=== PATIENT | female | born 1960 | race Asian ===

== ENCOUNTER 2021-06-16 09:12 | Inpatient (IN) | payer OTHER ==
[~2021-06-16] VITALS: Ht 167.6 cm; Wt 79.8 kg
[2021-06-16] MEDS ORDERED: LORAZEPAM INJ 2 MG/ML VIAL IVP ONE (09:30)
[2021-06-16] MEDS ORDERED: LORAZEPAM INJ 2 MG/ML VIAL ONE (09:30)
--- NOTE | 2021-06-16 09:30 | NUR ---
TO ER BED 1,MONITORED,DR CAVAZOS AT BEDSIDE
--- NOTE | 2021-06-16 09:41 | NUR ---
SL ESTABLISHED,BLOOD DRAWN BY LAB,MEDICATED ORDERED
[2021-06-16 09:44] LABS: BASOPHILS % (AUTO) 0.4 % (0.0-2.0); EOSINOPHILS % (AUTO) 0.1 % (0.0-6.0); HEMATOCRIT 43 % (33-45); HEMOGLOBIN 14.3 g/dL (11.5-14.8); LYMPHOCYTES # (AUTO) 0.8 K/uL (0.8-4.8); LYMPHOCYTES % (AUTO) 11.8 % (20.0-44.0); MEAN CORPUSCULAR HGB CONC 33 g/dl (31.0-36.0); MEAN CORPUSCULAR VOLUME 97 fL (82-100); MONOCYTES # (AUTO) 0.7 K/uL (0.1-1.30); MONOCYTES % (AUTO) 10.2 % (2.0-12.0); NEUTROPHILS # (AUTO) 5.6 K/uL (1.8-8.9); NEUTROPHILS % (AUTO) 77.5 % (43.0-81.0); PLATELET COUNT (AUTO) 196 K/uL (150-450); RED BLOOD CELL COUNT(AUTO) 4.42 MIL/uL (4.0-5.2); WHITE BLOOD COUNT (AUTO) 7.2 K/uL (4.3-11.0)
[2021-06-16 10:12] LABS: ALANINE AMINOTRANSFERASE 88 U/L (12-78); ALBUMIN 3.6 g/dL (3.4-5.0); ALCOHOL, BLOOD < 3 mg/dL (0-0); ALKALINE PHOSPHATASE 109 U/L (46-116); ASPARTATE AMINOTRANSFERASE 314 U/L (15-37); BILIRUBIN,DIRECT 1.1 mg/dL (0.0-0.2); BILIRUBIN,TOTAL 2.4 mg/dL (0.2-1.0); CALCIUM, SERUM 9.4 mg/dL (8.5-10.1); CARBON DIOXIDE 34 mmol/L (21-32); CHLORIDE 83 mmol/L (98-107); CREATININE 0.9 mg/dL (0.6-1.3); GLUCOSE 214 mg/dL (74-106); SODIUM SERUM 132 mmol/L (136-145); TOTAL PROTEIN, SERUM 7.8 g/dL (6.4-8.2); UREA NITROGEN, BLOOD 10 mg/dL (7-18)
--- NOTE | 2021-06-16 10:15 | NUR ---
LAB CALLED POTASSIUM 2.8 ER AWARE.
[2021-06-16 10:16] LABS: POTASSIUM 2.8 mmol/L (3.5-5.1)
[2021-06-16 10:17] LABS: ACETAMINOPHEN 0 ug/ml (10-30)
--- NOTE | 2021-06-16 10:35 | NUR ---
MOVE SHEET SUBMITTED AND CALLED FOR TELE BED.
[2021-06-16] MEDS ORDERED: METF-442 PO (10:46)
[2021-06-16] MEDS ORDERED: LOVA10TA PO (10:46)
[2021-06-16] MEDS ORDERED: ASPI-1420 PO (10:46)
[2021-06-16] MEDS ORDERED: POTASSIUM CL. PREMIX PERIPHER. 100 ML ONE (11:02)
[2021-06-16] MEDS ORDERED: MULTIVIT W/MINERALS 1 TAB TABLET ONE (11:03)
--- NOTE | 2021-06-16 11:07 | NUR ---
[facility] CALLED UNDERGRADUATE INTERN PAGED.
[2021-06-16] MEDS: MULTIVITAMINS,THERAGRAN 1 UDTAB TABLET PO SCH (11:20)
[2021-06-16] MEDS ORDERED: Thiamine 100 MG in IV D5W 50 ML IV SCH (11:30)
--- NOTE | 2021-06-16 11:42 | NUR ---
GOT BED 103
[2021-06-16] MEDS: POTASSIUM CL. PREMIX PERIPHER. 50 ML IV SCH ×2 (11:55→12:55)
[2021-06-16] MEDS ORDERED: MAG HYDROX/AL HYDROX/SIMETH 30 ML UDC PO PRN (12:00)
[2021-06-16] MEDS ORDERED: ACETAMINOPHEN 325 MG TABLET PO PRN (12:00)
[2021-06-16] MEDS ORDERED: ONDANSETRON HCL/PF 4 MG/2 ML VIAL IVP PRN (12:00)
[2021-06-16] MEDS ORDERED: *INSULIN REGULAR(HUMULIN R)HUM 100 UNIT/ML VIAL SQ PRN (12:00)
[2021-06-16] MEDS ORDERED: MAGNESIUM HYDROXIDE 30 ML UDC PO PRN (12:00)
[2021-06-16] MEDS ORDERED: DEXTROSE 50%-WATER 50 ML DISP.SYRIN IV PRN (12:00)
[2021-06-16] MEDS ORDERED: Z GUARD REMEDY 4 OZ OINT TP PRN (12:00)
[2021-06-16] MEDS ORDERED: Magnesium 1GM/D5W 100ML PREMIX 100 ML IV SCH (12:00)
--- NOTE | 2021-06-16 12:04 | NUR ---
CALLED LAB TO FOLLOW UP COVID RESULT SO PT CAN BE TRANSFERRED TO HER BED
--- NOTE | 2021-06-16 12:10 | NUR ---
REPORT GIVEN TO VERONICA AMATO FOR JESUS
[2021-06-16] MEDS ORDERED: POTASSIUM CHLORIDE 20 MEQ TAB.PRT.SR PO ONE (12:30)
--- NOTE | 2021-06-16 12:48 | NUR ---
URINE COLLECTED AND SENT TO LAB.
[2021-06-16 13:12] LABS: BILIRUBIN,URINE MODERATE (NEGATIVE); COLOR,URINE DARK YELLOW (YELLOW); LEUKOCYTE ESTERASE ,URINE SMALL (NEGATIVE); NITRITE, URINE NEGATIVE (NEGATIVE); PH,URINE 8.5 (5.0-8.0); PROTEIN,URINE TRACE mg/dl (NEGATIVE); UGLUCOSE NEGATIVE (NEGATIVE)
[2021-06-16] MEDS: Magnesium 1GM/D5W 100ML PREMIX 100 ML IV SCH ×2 (13:28→14:27)
[2021-06-16] MEDS: CHLORDIAZEPOXIDE HCL 25 MG CAPSULE PO SCH ×2 (13:30→16:46)
[2021-06-16] MEDS: BLOOD SUGAR DIAGNOSTIC 1 EACH STRIP VI SCH ×3 (13:30→21:38)
--- NOTE | 2021-06-16 13:30 | NUR ---
TRANSFERRED TO BED 103 IN STABLE CONDITION
--- NOTE | 2021-06-16 14:00 | NUR ---
RN NOTE PATIENT RECEIVED ON THE FLOOR, STABLE. PATIENT ON ROOM AIR WITH NO SIGNS OF LABORED BREATHING AT THIS TIME. LEFT AC 20G IN PLACE, PATENT AND FLUSHING. TELE MONITOR ON, SINUS TACH 105. NO COMPLAIN OF CHEST PAIN OR DISCOMFORT. BED LOCKED AND IN LOWEST POSITION, CALL LIGHT WITHIN REACH, 3 SIDE RAILS UP, PADDED FOR SEIZURE PRECAUTION. WILL CONTINUE TO MONITOR.
[2021-06-16 14:42] LABS: BACTERIA,URINE 4+ /HPF (None Seen); SQUAMOUS EPITHELIAL CELL,UR Few /HPF (None Seen); WBC,URINE TOO NUMEROUS TO COUN /HPF (0-3)
[2021-06-16] MEDS: IV NS 0.9% 1,000 ML IV PRN (15:19)
[2021-06-16 16:00] VITALS: BP 136/77
[2021-06-16] MEDS: INSULIN REGULAR, HUMAN 100 UNIT/ML 3 ML VIAL SQ PRN (16:45)
--- NOTE | 2021-06-16 18:51 | NUR ---
RN CLOSING NOTE PATIENT REMAINS IN BED, RESTING, A&OX4, ON ROOM AIR WITH NO SIGNS OF LABORED BREATHING AT THIS TIME. LEFT AC 20G IV IN PLACE, PATENT AND RUNNING NS AT 75 CC/HR ORDERED. NO SIGNS OF ACUTE DISTRESS NOTED AT THIS TIME. ALL NEEDS ATTENDED DURING SHIFT. BED LOCKED AND IN LOWEST POSITION, CALL LIGHT WITHIN REACH, 3 SIDE RAILS UP, PADDED FOR SEIZURE PRECAUTION. WILL ENDORSE TO GLOBAL SALES EXECUTIVE NURSE.
--- NOTE | 2021-06-16 19:30 | NUR ---
RN OPENING NOTE RECEIVED CARE OF PATIENT FROM AM NURSE WHILE PATIENT IN BED, A/O X4, ABLE TO VERBALIZE NEEDS. PATIENT EXPRESSES FEELINGS OF ANXIETY AND DISCOMFORT. REPOSITIONED AND ATTEMPTED BREATHING RELAXATION TECHNIQUES. INTERVENTIONS INEFFECTIVE, WILL ADMINISTER ORDERED ATIVAN PRN FOR ANXIETY. PATIENT ON ROOM AIR, SOME SOB NOTED, PATIENT O2 SAT 97%, NO DISTRESS NOTED. PATIENT ON TELE MONITOR [id number] SINUS TACH WITH HR OF 104, PATIENT IN NO DISTRESS. LEFT AC 20G IV IN PLACE, PATENT AND RUNNING NS AT 75 CC/HR ORDERED. NO SIGNS OF ACUTE DISTRESS NOTED AT THIS TIME. NO SIGNIFICANT FINDINGS UPON INITIAL NURSING ASSESSMENTS. BED LOCKED AND IN LOWEST POSITION, CALL LIGHT WITHIN REACH, 3 SIDE RAILS UP, PADDED FOR SEIZURE PRECAUTION. WILL CONTINUE TO MONITOR PATIENT.
[2021-06-16 20:00] VITALS: BP 140/78
[2021-06-16] MEDS: LORAZEPAM INJ 2 MG/ML VIAL IV PRN (20:00)
[2021-06-17] VITALS: BP 130/83
[2021-06-17] MEDS: LORAZEPAM INJ 2 MG/ML VIAL IV PRN ×5 (00:08→23:18)
[2021-06-17 04:00] VITALS: BP 145/85
[2021-06-17] MEDS: IV NS 0.9% 1,000 ML IV PRN ×2 (05:29→17:59)
--- NOTE | 2021-06-17 06:25 | NUR ---
RN CLOSING NOTES WILL ENDORSE CARE OF PATIENT WHILE PATIENT IN BED, SLEEPING, WAKES TO NAME. A/O X4. ALL PATIENT NEEDS MET THROUGHOUT SHIFT. NO SIGNIFICANT FINDINGS UPON ALL NURSING ASSESSMENTS. ALL DUE MEDS GIVEN. SAFETY PRECAUTIONS IMPLEMENTED PER HOSPITAL PROTOCOLS. WILL ENDORSE TO AM NURSE FOR JESUS.
[2021-06-17 07:13] LABS: BASOPHILS % (AUTO) 0.7 % (0.0-2.0); EOSINOPHILS % (AUTO) 2.1 % (0.0-6.0); HEMATOCRIT 38 % (33-45); HEMOGLOBIN 12.7 g/dL (11.5-14.8); LYMPHOCYTES # (AUTO) 1.2 K/uL (0.8-4.8); LYMPHOCYTES % (AUTO) 24.8 % (20.0-44.0); MEAN CORPUSCULAR HGB CONC 33 g/dl (31.0-36.0); MEAN CORPUSCULAR VOLUME 98 fL (82-100); MONOCYTES # (AUTO) 0.5 K/uL (0.1-1.30); MONOCYTES % (AUTO) 10.6 % (2.0-12.0); NEUTROPHILS # (AUTO) 2.9 K/uL (1.8-8.9); NEUTROPHILS % (AUTO) 61.8 % (43.0-81.0); PLATELET COUNT (AUTO) 148 K/uL (150-450); RED BLOOD CELL COUNT(AUTO) 3.89 MIL/uL (4.0-5.2); WHITE BLOOD COUNT (AUTO) 4.7 K/uL (4.3-11.0)
--- NOTE | 2021-06-17 07:20 | NUR ---
RN OPENING NOTE PATIENT RECEIVED IN BED, RESTING. PATIENT ON ROOM AIR WITH NO SIGNS OF LABORED BREATHING AT THIS TIME. SEIZURE PRECAUTIONS IN PLACE. LEFT AC 20G IV IN PLACE RUNNING NS AT 75 CC/HR. NO SIGNS OF ACUTE DISTRESS NOTED AT THIS TIME. BED LOCKED AND IN LOWEST POSITION, CALL LIGHT WITHIN REACH, 3 SIDE RAILS UP. WILL CONTINUE TO MONITOR.
[2021-06-17 07:43] LABS: CALCIUM, SERUM 8.3 mg/dL (8.5-10.1); CREATININE 0.6 mg/dL (0.6-1.3); POTASSIUM 3.2 mmol/L (3.5-5.1)
[2021-06-17] MEDS: BLOOD SUGAR DIAGNOSTIC 1 EACH STRIP VI SCH ×4 (07:44→22:13)
[2021-06-17 07:50] LABS: ALBUMIN 2.9 g/dL (3.4-5.0); BILIRUBIN,DIRECT 0.9 mg/dL (0.0-0.2); BILIRUBIN,TOTAL 1.8 mg/dL (0.2-1.0); PHOSPHORUS 2.4 mg/dL (2.5-4.9); TOTAL PROTEIN, SERUM 6.5 g/dL (6.4-8.2)
[2021-06-17 08:00] VITALS: BP 150/90
[2021-06-17] MEDS: PANTOPRAZOLE 40 MG TABLET.DR PO SCH (08:02)
[2021-06-17] MEDS: CHLORDIAZEPOXIDE HCL 25 MG CAPSULE PO SCH ×2 (08:02→16:03)
[2021-06-17] MEDS: MULTIVITAMINS,THERAGRAN 1 UDTAB TABLET PO SCH (08:02)
[2021-06-17] MEDS: THIAMINE HCL 100 MG TABLET PO SCH (08:02)
[2021-06-17] MEDS: FOLIC ACID 1 MG TABLET PO SCH (08:02)
[2021-06-17 08:08] LABS: MAGNESIUM 1.2 mg/dL (1.8-2.4)
--- NOTE | 2021-06-17 08:10 | NUR ---
RN NOTE CRITICAL LAB VALUE OF MAGNESIUM 1.[address] TANG. NO NEW ORDER AT THIS TIME. WILL CONTINUE TO MONITOR.
[2021-06-17] MEDS ORDERED: POTASSIUM CHLORIDE 20 MEQ TAB.PRT.SR PO SCH (10:00)
[2021-06-17] MEDS ORDERED: MAGNESIUM OXIDE 400 MG TABLET PO ONE (10:00)
[2021-06-17] MEDS ORDERED: K PHOS NEUTRAL 250 MG TABLET PO ONE (10:00)
[2021-06-17] MEDS ORDERED: Magnesium 1GM/D5W 100ML PREMIX 100 ML IV SCH (11:30)
[2021-06-17] MEDS ORDERED: POTASSIUM PHOSPHATE MM 7.5 MMOL in IV NS 0.9% 100 ML IV SCH (11:30)
[2021-06-17] MEDS ORDERED: POTASSIUM CHLORIDE 20 MEQ TAB.PRT.SR PO ONE (11:30)
[2021-06-17 12:00] VITALS: BP 131/80
--- NOTE | 2021-06-17 12:30 | NUR ---
RN NOTE PATIENT REFUSING INSULIN AT THIS TIME. WILL CONTINUE TO MONITOR.
--- NOTE | 2021-06-17 15:09 | NUR ---
SS Consult: SS consult for homelessness. Pt. Is a 61-year-old White female who demonstrates adequate insight to the reason for hospitalization. Per pt., she presented herself to hospital for alcohol toxication. Pt. was oriented x3, alert, and cooperative. During interview, pt. was capable of following directions, made appropriate eye-contact, and appeared unkempt. Pt.s speech was at a normal rate and pt.s mood was elevated. Pt. reported no hx of mental health, suicidal ideation, or homicidal ideation. Pt. denies auditory hallucinations, visual hallucinations, paranoia, or delusions. Pt. has been drinking for 38 days straight. Pt. stated that she has been staying at a [facility] in [place] since her family lost their home due to landlord issues. Pt. mentioned that she came to [place] for treatment [ [facility] located in [place]]. Binta [BRIDGES SUPERVISOR [phone]] from facility stated that pt. can come back upon discharge. Plan: SW provided available resources and pt. accepted. Upon discharge, per pt., she will return to [facility] located in [place]. Per Binta [[phone]] from facility, please call her so she can set up transportation. Resources Provided: Counseling--[facility]patient [facility] [address] [place] [address] (Specializes in in-depth psychotherapy for emotional distress: anxiety, depression, interpersonal conflicts, life transitions, childhood abuse) [facility] [address] [place] [address] (Assist with solving problem marital difficulties, separation & divorce, aging parents, & grief, chronic & terminal illness) [facility] [address] [place] [address] (Deal with loss & grief, anxiety, marital difficulties) [facility] [address] [place] [address] (Provide in-home mental services to people who are incapable of leaving their homes) [facility] [address] [place] [address] [facility] [address] [facility] [place] [address] PSYCHIATRIC OUTPATIENT SERVICES [facility] Partial Hospitalization and Intensive Outpatient Program (Managed Care and [place] Only)[address] [facility] [phone] [facility] Partial Hospitalization and Outpatient [address] [place], [place] [phone] [facility] [id number] [place], [place] [phone] [facility] Partial Hospitalization and Outpatient [id number] [facility] [place], [phone] Substance Abuse resources provided included: [facility] Substance Abuse Self-Helpline ([facility]) ; [facility] [address] [facility]. [place] [address] ; [facility] [address] [facility] [address] ; [facility] Rehabilitation Program [address] [facility] [address] ; [facility] [address] [facility] [address] ; [facility] [address] [facility] [address] ; [facility] [address] [facility] [address] ; [facility] Substance Abuse Helpline([facility])-[facility] ; [facility] ; [facility] [place]; [facility] [place]; [facility] [place]; [facility]; [facility] [place]; [facility] [place]; [facility] [place]; [facility], [facility]. [place]; Alcoholics Anonymous -[facility]; [facility] ; Marijuana Anonymous [facility]; Narcotics Anonymous www.na.org;
[2021-06-17 16:00] VITALS: BP 142/90
[2021-06-17] MEDS: INSULIN REGULAR, HUMAN 100 UNIT/ML 3 ML VIAL SQ PRN ×2 (17:41→22:01)
[2021-06-17 20:00] VITALS: BP 145/76
[2021-06-17] MEDS: MUPIROCIN OINT 2% 22 GM TUBE NS SCH (21:11)
[2021-06-18] VITALS: BP 151/81
[2021-06-18 04:00] VITALS: BP 137/8
[2021-06-18] MEDS: IV NS 0.9% 1,000 ML IV PRN ×2 (06:13→19:58)
[2021-06-18 07:01] LABS: BASOPHILS % (AUTO) 0.9 % (0.0-2.0); EOSINOPHILS % (AUTO) 4.1 % (0.0-6.0); HEMATOCRIT 36 % (33-45); LYMPHOCYTES # (AUTO) 1.6 K/uL (0.8-4.8); LYMPHOCYTES % (AUTO) 31.6 % (20.0-44.0); MEAN CORPUSCULAR HGB CONC 33 g/dl (31.0-36.0); MEAN CORPUSCULAR VOLUME 99 fL (82-100); MONOCYTES # (AUTO) 0.5 K/uL (0.1-1.30); NEUTROPHILS # (AUTO) 2.7 K/uL (1.8-8.9); NEUTROPHILS % (AUTO) 53.4 % (43.0-81.0); PLATELET COUNT (AUTO) 129 K/uL (150-450); RED BLOOD CELL COUNT(AUTO) 3.66 MIL/uL (4.0-5.2)
[2021-06-18 07:09] LABS: ALBUMIN 2.6 g/dL (3.4-5.0); BILIRUBIN,DIRECT 0.6 mg/dL (0.0-0.2); BILIRUBIN,TOTAL 1.2 mg/dL (0.2-1.0)
[2021-06-18] MEDS: LORAZEPAM INJ 2 MG/ML VIAL IV PRN ×3 (07:18→19:57)
--- NOTE | 2021-06-18 07:18 | NUR ---
RN notes Alert and oriented, verbally able to communicate needs. In bed resting comfortably with no distress noted. Complaining of anxiety and restlessness due to alcohol withdrawal, Ativan 1mg administered x 2, with help. Ambulatory with bathroom privileges, assistance needed. Needs attended. Kept clean and dry. Will endorse to next shift for continuity of care.
[2021-06-18] MEDS: PANTOPRAZOLE 40 MG TABLET.DR PO SCH (07:30)
--- NOTE | 2021-06-18 07:30 | NUR ---
RN OPENING NOTE RECEIVED PATIENT IN BED, RESTING. PATIENT ON ROOM AIR WITH NO SIGNS OF LABORED BREATHING AT THIS TIME. SEIZURE PRECAUTIONS IN PLACE. LEFT AC 20G IV IN PLACE RUNNING NS AT 75 CC/HR, NO S/SX OF INFILTRATION NOTED. NO SIGNS OF ACUTE DISTRESS NOTED, NO COMPLAINTS OF PAIN AT THIS TIME. BED LOCKED AND IN LOWEST POSITION, CALL LIGHT WITHIN REACH, 3 SIDE RAILS UP. WILL CONTINUE TO MONITOR PATIENT ACCORDINGLY.
[2021-06-18] MEDS: INSULIN REGULAR, HUMAN 100 UNIT/ML 3 ML VIAL SQ PRN ×4 (07:31→22:38)
[2021-06-18] MEDS: BLOOD SUGAR DIAGNOSTIC 1 EACH STRIP VI SCH ×4 (07:43→20:59)
[2021-06-18 07:46] LABS: CALCIUM, SERUM 7.8 mg/dL (8.5-10.1); CREATININE 0.5 mg/dL (0.6-1.3); POTASSIUM 3.4 mmol/L (3.5-5.1)
[2021-06-18 08:00] VITALS: BP 139/79
[2021-06-18] MEDS: MUPIROCIN OINT 2% 22 GM TUBE NS SCH ×2 (08:16→20:59)
[2021-06-18] MEDS: FOLIC ACID 1 MG TABLET PO SCH (08:17)
[2021-06-18] MEDS: CHLORDIAZEPOXIDE HCL 25 MG CAPSULE PO SCH ×2 (08:17→17:37)
[2021-06-18] MEDS: MULTIVITAMINS,THERAGRAN 1 UDTAB TABLET PO SCH (08:17)
[2021-06-18] MEDS: THIAMINE HCL 100 MG TABLET PO SCH (08:17)
[2021-06-18] MEDS ORDERED: POTASSIUM CHLORIDE 20 MEQ TAB.PRT.SR PO SCH (10:00)
[2021-06-18 12:00] VITALS: BP 140/79
[2021-06-18 16:00] VITALS: BP 127/78
--- NOTE | 2021-06-18 18:50 | NUR ---
RN CLOSING NOTE PATIENT IN BED, RESTING. PATIENT ON ROOM AIR WITH NO SIGNS OF LABORED BREATHING AT THIS TIME. SEIZURE PRECAUTIONS IN PLACE. LEFT AC 20G IV IN PLACE RUNNING NS AT 75 CC/HR, NO S/SX OF INFILTRATION NOTED. ON TELE MONITOR READING SHOWING SR HR AT 80-90NO SIGNS OF ACUTE DISTRESS NOTED, NO COMPLAINTS OF PAIN AT THIS TIME. BED LOCKED AND IN LOWEST POSITION, CALL LIGHT WITHIN REACH, 3 SIDE RAILS UP. WILL ENDORSE TO ONCOMING SHIFT FOR JESUS.
[2021-06-18 20:00] VITALS: BP 157/78
[2021-06-19] VITALS: BP 144/94
[2021-06-19] MEDS: LORAZEPAM INJ 2 MG/ML VIAL IV PRN ×3 (01:10→11:52)
[2021-06-19 04:00] VITALS: BP 131/81
--- NOTE | 2021-06-19 06:29 | NUR ---
ROLLER LEVELER NOTES AWAKE & RESPONSIVE. NOT IN ANY DISTRESS. NO SOB NOTED. DENIES ANY PAIN OR DISCOMFORT AT THIS TIME. ON TELE SR-ST @ 100S WITH IVF INFUSING WELL. AM CARE DONE. MONITORED ACCORDINGLY. CALL LIGHT WITHIN REACH. BED IN LOWEST POSITION. SR UP X 2 FOR SAFETY. WILL ENDORSE TO NEXT SHIFT.
[2021-06-19 06:52] LABS: ALBUMIN 2.4 g/dL (3.4-5.0); BILIRUBIN,DIRECT 0.3 mg/dL (0.0-0.2); BILIRUBIN,TOTAL 0.9 mg/dL (0.2-1.0); CALCIUM, SERUM 7.1 mg/dL (8.5-10.1); CREATININE 0.4 mg/dL (0.6-1.3); POTASSIUM 3.6 mmol/L (3.5-5.1); TOTAL PROTEIN, SERUM 5.7 g/dL (6.4-8.2)
--- NOTE | 2021-06-19 07:30 | NUR ---
TOUR DRIVER OPENING NOTES RECEIVED PATIENT ON BED AWAKE AND A/O X4. ON ROOM AIR TOLERATING WELL. NO SOB NOTED. NOT IN DISTRESS. WITH NO COMPLAINTS OF PAIN OR DISCOMFORT AT THIS TIME. ON TELE MONITOR CURRENTLY READING SINUS RHYTHM AT 87BPM. WITH IV ACCES AT LEFT AC G20 WITH IVF NS AT 75ML/HR INFUSING WELL. SAFETY MEASURES IN PLACED. CALL LIGHT WITHIN REACH. BED ON LOWEST LOCKED POSITION, SIDE RAILS UP X2. WILL CONTINUE TO MONITOR.
[2021-06-19] MEDS: PANTOPRAZOLE 40 MG TABLET.DR PO SCH (07:52)
[2021-06-19] MEDS: BLOOD SUGAR DIAGNOSTIC 1 EACH STRIP VI SCH ×2 (07:53→11:26)
[2021-06-19 08:00] VITALS: BP 134/75
[2021-06-19] MEDS: CHLORDIAZEPOXIDE HCL 25 MG CAPSULE PO SCH (08:27)
[2021-06-19] MEDS: THIAMINE HCL 100 MG TABLET PO SCH (08:27)
[2021-06-19] MEDS: FOLIC ACID 1 MG TABLET PO SCH (08:27)
[2021-06-19] MEDS: MULTIVITAMINS,THERAGRAN 1 UDTAB TABLET PO SCH (08:27)
[2021-06-19] MEDS: MUPIROCIN OINT 2% 22 GM TUBE NS SCH (08:33)
[2021-06-19] MEDS: IV NS 0.9% 1,000 ML IV PRN (11:04)
[2021-06-19] MEDS ORDERED: Thiamine HCL PO (11:12)
[2021-06-19] MEDS ORDERED: Folic Acid PO (11:12)
[2021-06-19 12:00] VITALS: BP 156/94
--- NOTE | 2021-06-19 15:58 | NUR ---
HOME HEALTH AIDE NOTES PATIENT WAS SEEN BY DR. TANG AND ORDERED PATIENT FOR DISCHARGE BACK TO REHAB. DISCHARGE INSTRUCTION AND EDUCATION PROVIDED TO PATIENT AND EXPLAINED MEDICATIONS AND PRESCRIPTIONS. PATIENT VERBALIZED UNDERSTANDING. DISCHARGE FORM AND BELONGINGS LIST FORM SIGNED BY PATIENT. ALL BELONGINGS ACCOUNTED FOR. NAME WRIST BAND AND IV LINE REMOVED. PATIENT WAS PICKED UP BY REYES FROM [facility] IN STABLE CONDITION. MD AND CHARGE NURSE ARE AWARE OF THE DISCHARGE.
== END 2021-06-19 16:21 | DRG 896 ==
LOC: ER 09:16 → TELE1 12:23
PROVIDERS: ADMIT Internal Medicine; ATTEND Internal Medicine
DX: F10.239 Alcohol dependence with withdrawal, unspecified (principal); G92.9 Unspecified toxic encephalopathy; E87.1 Hypo-osmolality and hyponatremia; E83.42 Hypomagnesemia; E87.6 Hypokalemia; Y90.0 Blood alcohol level of less than 20 mg/100 ml; Z20.822 Contact with and (suspected) exposure to COVID-19; Z88.0 Allergy status to penicillin; Z79.82 Long term (current) use of aspirin; Z79.84 Long term (current) use of oral hypoglycemic drugs; Z79.899 Other long term (current) drug therapy; K70.10 Alcoholic hepatitis without ascites; E80.6 Other disorders of bilirubin metabolism; E11.65 Type 2 diabetes mellitus with hyperglycemia
CPT/HCPCS: 36415; 80048-TC; 80076-TC; 81001; 82962-TC; 83735-TC; 84100-TC; 85025-TC; 87081-TC; 87086-TC; 87186-TC; G0378; G0480; J1815; J2060; J3411; J3475; J3480; J7030; J7040; J7050; J7060